=== PATIENT | female | born 1995 | race Two or more races ===

== ENCOUNTER 2022-10-25 13:00 | Emergency (ER) | payer OTHER ==
[~2022-10-25] VITALS: Ht 167.6 cm; Wt 59.4 kg
[2022-10-25] MEDS ORDERED: PRENA1 CHEW TA1.4 MG (13:26)
== END 2022-10-25 18:49 | disposition home or self-care (01) ==
LOC: ER 13:00
DX: O20.9 Hemorrhage in early pregnancy, unspecified (principal); Z3A.01 Less than 8 weeks gestation of pregnancy